=== PATIENT | male | born 1935 | race Caucasian/White ===

== ENCOUNTER → 2018-02-07 | Outpatient (CLI) | payer MEDICARE, BC ==
[~2018-02-07] MED LIST: FERROUS SU325 MG/TAB PO; FOLIC ACID 40400 MCG PO; NORVASC 10MG10 MG PO; VITAMIN C BUFF500 MG PO
== END ==
LOC: COL.RAD 06:00
DX: K82.8 Other specified diseases of gallbladder (principal); K80.20 Calculus of gallbladder without cholecystitis without obstruction
CPT/HCPCS: A9537; J2805

== ENCOUNTER 2018-04-18 11:17 | Emergency (ER) | payer MEDICARE, BC ==
[~2018-04-18] VITALS: Ht 177.8 cm; Wt 86.4 kg
[2018-04-18 11:23] VITALS: TEMP 96.9
[2018-04-18] MEDS ORDERED: KEPPRA750 MG PO (12:09)
[2018-04-18 12:10] LABS: COLLECTION METHOD CLEAN CATCH
[2018-04-18] MEDS ORDERED: ZYLOPRIM 300MG300 MG PO (12:10)
[2018-04-18] MEDS ORDERED: RAPAFLO8 MG PO (12:10)
[2018-04-18 12:18] LABS: BASO % 0.3 % (0.0-2.0); EOS % 0.3 % (0-4.0); GRAN # 4.5 (1.4-6.5); GRAN % 74.6 % (42.2-75.2); HEMATOCRIT 42.9 % (42.0-52.0); HEMOGLOBIN 14.5 g/dl (13.5-18.0); LYMPH # 1.1 (1.2-3.4); LYMPH % 18.5 % (20.0-51.0); MEAN CELL VOLUME 92 fl (80.0-100.0); MEAN CORPUSCULAR HEMOGLOBIN 31 pg (27.0-31.0); MEAN CORPUSCULAR HGB CONC 34 g/dl (33.0-37.0); MEAN PLATELET VOLUME 11.5 fl (7.4-10.4); MONO # 0.4 (0.1-0.6); PLATELET COUNT 112 K/mm3 (130-400); RED BLOOD COUNT 4.65 M/mm3 (4.20-5.60); REDCELL DISTRIBUTION WIDTH-CV 14.1 % (11.5-14.5)
[2018-04-18 12:19] LABS: PH 6 (5-8); SQUAMOUS EPITHELIAL None Seen /hpf; URINE APPEARANCE Clear; URINE BACTERIA None Seen /hpf; URINE BILIRUBIN Negative (NEGATIVE); URINE BLOOD Negative (NEGATIVE); URINE COLOR Yellow; URINE GLUCOSE Negative (NEGATIVE); URINE KETONE Negative (NEGATIVE); URINE LEUKOCYTE ESTERASE Negative (NEGATIVE); URINE NITRATE Negative (NEGATIVE); URINE PROTEIN(semi-quant) Negative (NEGATIVE); URINE RBC 0-2 /hpf; URINE UROBILINOGEN Negative (NEGATIVE)
[2018-04-18 12:36] LABS: PROTHROMBIN TIME 11.5 SECONDS (9.7-12.8)
[2018-04-18 12:55] LABS: ALANINE AMINOTRANSFERASE 40 U/L (21-72); ALBUMIN 3.7 gm/dL (3.5-5.0); ALKALINE PHOSPHATASE 96 U/L (50-136); AMYLASE 65 U/L (30-110); ANION GAP 11 mmol/L (7-16); AST,SGOT 30 U/L (15-37); BILIRUBIN,TOTAL 1.1 mg/dL (0.0-1.0); BLOOD UREA NITROGEN 6 mg/dL (9-20); CALCIUM 9.9 mg/dL (8.4-10.2); CARBON DIOXIDE 25 mmol/L (22-30); CHLORIDE 100 mmol/L (98-107); CREATININE, serum 0.92 mg/dL (0.66-1.25); GLUCOSE 102 mg/dL (74-106); LIPASE 73 U/L (23-300); POTASSIUM 3.7 mmol/L (3.4-5.0); SODIUM 137 mmol/L (137-145); TOTAL PROTEIN 7.2 gm/dL (6.4-8.2)
[2018-04-18 12:56] LABS: C-REACTIVE PROTEIN < 0.5 mg/dL (0.0-0.9)
[2018-04-18 13:05] LABS: TROPONIN-I < 0.012 ng/mL (0.000-0.034)
[2018-04-18] MEDS ORDERED: VOLTAREN 75 DR75 MG PO (15:25)
[2018-04-18 15:32] VITALS: BP 130/79; PULSE 85
== END 2018-04-18 15:32 | disposition home or self-care (01) ==
LOC: COL.ER 11:17
PROVIDERS: Emergency Medicine
DX: G89.29 Other chronic pain (principal); R10.31 Right lower quadrant pain; R10.13 Epigastric pain; M54.5 Low back pain; I10 Essential (primary) hypertension; E78.5 Hyperlipidemia, unspecified; Z90.49 Acquired absence of other specified parts of digestive tract
CPT/HCPCS: J1885; J2765; J3010; J7030; Q9967

== ENCOUNTER 2021-11-03 14:15 | Day surgery (SDC) | payer MEDICARE, BC ==
[2021-11-03] VITALS (10 sets, daily range): BP systolic 118–142; BP diastolic 58–84; PULSE 50–76; TEMP 98.1–98.9
[~2021-11-03] VITALS: Ht 175.3 cm; Wt 88.5 kg
[~2021-11-03 14:15] MED LIST changes: +FLOMAX 0.40.4 MG/CAP PO; +K-DUR20 MEQ PO; +KEPPRA 500MG500 MG PO; +LASIX 20MG TABL20 MG PO; +MASON NATURAL2000 IU PO; +NORVASC 5MG5 MG/TAB PO; +RAPAFLO8 MG PO; +VOLTAREN 75 DR75 MG PO; +ZOLOFT 50MG50 MG PO; +ZYLOPRIM 300MG300 MG PO
[2021-11-03] MEDS ORDERED: NORVASC 10MG10 MG PO (14:51)
[2021-11-03] MEDS ORDERED: LASIX 40MG TABL40 MG PO (14:51)
[2021-11-03] MEDS ORDERED: ARICEPT 5MG PO (15:01)
--- NOTE | 2021-11-03 19:00 | NUR ---
PT ADMITTED TO FLOOR. NO COMPLAINTS OF DYSPNEA. COMPLAINS OF DISCOMFORT TO PENILE AREA. WHEN QUESTIONED ABOUT MEDICATIONS PT STATES HE DOESN'T KNOW THEM BUT GAVE A LIST TO SOMEONE IN SURGERY. SURGERY NURSE REPORTS MED REC COMPLETE. SON UNABLE TO VERIFY MEDICATIONS. NO OTHER CONCERNS OR QUESTIONS AT THIS TIME.
--- NOTE | 2021-11-03 20:04 | NUR ---
PT IN BED, REPORTS PAIN TO TIP OF HIS PENIS. HS MEDS GIVEN INCLUDING MELATONIN AND TYLENOL. HAS PENA WITH CBI AT SLOW RATE, URINE PINK. IVF TO LEFT HAND, NO REDNESS OR SWELLING NOTED.
[2021-11-04 00:30] VITALS: BP 119/60; PULSE 63; TEMP 98
--- NOTE | 2021-11-04 03:25 | NUR ---
PT REPORTS PAIN TO PENIS TIP, TYLENOL 650MG PO GIVEN. URINE LIGHT PINK WITH CBI AT SLOW RATE. EDUCATED PT ON PENA REMOVAL AT 0600.
[2021-11-04 03:46] VITALS: BP 110/61; PULSE 57; TEMP 98.4
--- NOTE | 2021-11-04 05:56 | NUR ---
URINE PINK, INSTILLED 250CC OF SALINE, DEFLATED BALLOON AND REMOVED CATHETER WITHOUT PROBLEM. PT TOLERATED WELL.
[2021-11-04 07:25] VITALS: BP 103/53; PULSE 62; TEMP 97.7
--- NOTE | 2021-11-04 10:19 | NUR ---
Patient resting in bed. His son at bedside. rounded & plan of care reviewed. AZO to be given to treat urinary symptoms. He has completed 3 of 6 cups. He tolerated breakfast. Hopeful for discharge home this afternoon.
--- NOTE | 2021-11-04 11:07 | NUR ---
patient voided a small amount, he is getting dressed, reports he is leaving regaurdless. discussed with him the importance of completing 6 bottle routine.
--- NOTE | 2021-11-04 12:20 | NUR ---
6 BOTTLE ROUTINE COMPLETED. URINE CLEARING NICELY. PATIENT READY FOR DISCHARGE. HIS SON AT BEDSIDE. PATIENT & SON GIVEN DISCHARGE EDUCATION. WE REVIEWED SIGNS & SYMPTOMS OF WHEN TO CALL THE DOCTOR. PATIENT GIVEN DIETARY & ACTIVITY RESTRICTIONS. PATIENT AMBULATED OUT WITH ALL BELONGINGS. HIS SON TAKING HIM HOME. THEY ARE AWARE THEY NEED TO MAKE FOLLOW UP APPT ON SATURDAY. DENY QUESTIONS OR CONCERNS. PATIENT JUST WANTING TO GET HOME.
== END 2021-11-04 12:20 | disposition home or self-care (01) ==
LOC: SDCO 14:15 → SURG 19:13 → SDCO 11-04 12:20
DX: C67.5 Malignant neoplasm of bladder neck (principal); M10.9 Gout, unspecified; I10 Essential (primary) hypertension; Z85.46 Personal history of malignant neoplasm of prostate; F32.A Depression, unspecified; F41.9 Anxiety disorder, unspecified; E87.6 Hypokalemia; Z92.3 Personal history of irradiation; G47.33 Obstructive sleep apnea (adult) (pediatric)
CPT/HCPCS: OP; J0690; J1170; J2405; J2704; J3010; J3480; J7120

== ENCOUNTER 2021-12-13 10:02 | Inpatient (IN) | payer MEDICARE, BC ==
[~2021-12-13] VITALS: Ht 170.2 cm; Wt 92.2 kg
[~2021-12-13 10:02] MED LIST changes: +ARICEPT 5MG PO; +LASIX 40MG TABL40 MG PO
[2021-12-13 10:52] LABS: HEMATOCRIT 40.4 % (42.0-52.0); HEMOGLOBIN 13.2 g/dl (13.5-18.0); MEAN CELL VOLUME 94 fl (80.0-100.0); MEAN CORPUSCULAR HEMOGLOBIN 31 pg (27-31); MEAN CORPUSCULAR HGB CONC 33 g/dl (33.0-37.0); MEAN PLATELET VOLUME 11.2 fl (7.4-10.4); PLATELET COUNT 115 K/mm3 (130-400); RED BLOOD COUNT 4.31 M/mm3 (4.20-5.60); REDCELL DISTRIBUTION WIDTH-CV 15.3 % (11.5-14.5)
[2021-12-13 11:03] LABS: CALCIUM 10.5 mg/dL (8.4-10.2); CREATININE, serum 1.41 mg/dL (0.72-1.25)
[2021-12-27 10:16] LABS: HEMATOCRIT 40.4 % (42.0-52.0); HEMOGLOBIN 13.4 g/dl (13.5-18.0); MEAN CELL VOLUME 92 fl (80.0-100.0); MEAN CORPUSCULAR HEMOGLOBIN 31 pg (27-31); MEAN CORPUSCULAR HGB CONC 33 g/dl (33.0-37.0); MEAN PLATELET VOLUME 10.1 fl (7.4-10.4); PLATELET COUNT 124 K/mm3 (130-400); RED BLOOD COUNT 4.38 M/mm3 (4.20-5.60)
[2021-12-27 10:29] LABS: CALCIUM 10.2 mg/dL (8.4-10.2); CREATININE, serum 1.58 mg/dL (0.72-1.25); POTASSIUM 3.9 mmol/L (3.5-4.5)
[2021-12-28] VITALS (380 sets, daily range): BP systolic 88–115; BP diastolic 37–66; PULSE 55–75; TEMP 97.4–97.8; O2SAT 40–100
--- NOTE | 2021-12-28 05:46 | NUR ---
PT AMBULATED WITHOUT DIFFICULTIES TO BAY 8. VS OBTAINED. VSS. LUNGS CTA. BS PRESENT. IV STARTED IN R HAND WITH 20G. LR INFUSING. PT ORIENTED TO ROOM AND CALL LIGHT. PT VERBALIZED UNDERSTANDING. SON AT BEDSIDE. ALL QUESTIONS ANSWERED. WILL CONTINUE TO MONITOR PT.
[2021-12-28 09:19] LABS: HEMOGLOBIN 9.8 g/dl (13.5-18.0)
[2021-12-28 12:12] LABS: BASO % 0.3 % (0.0-2.0); EOS % 0.1 % (0.0-4.0); GRAN # 13.2 K/mm3 (1.4-6.5); GRAN % 86.6 % (42.2-75.2); HEMOGLOBIN 11.5 g/dl (13.5-18.0); LYMPH # 1.4 K/mm3 (1.2-3.4); LYMPH % 8.9 % (20.0-51.0); MEAN CELL VOLUME 94 fl (80.0-100.0); MEAN CORPUSCULAR HEMOGLOBIN 30 pg (27-31); MEAN CORPUSCULAR HGB CONC 32 g/dl (33.0-37.0); MEAN PLATELET VOLUME 11.1 fl (7.4-10.4); MONO # 0.5 K/mm3 (0.1-0.6); PLATELET COUNT 95 K/mm3 (130-400); RED BLOOD COUNT 3.84 M/mm3 (4.20-5.60); REDCELL DISTRIBUTION WIDTH-CV 16.5 % (11.5-14.5)
[2021-12-28 12:17] LABS: CALCIUM 8.3 mg/dL (8.4-10.2); CREATININE, serum 1.34 mg/dL (0.72-1.25); MAGNESIUM 1.8 mg/dL (1.6-2.6); PHOSPHOROUS 4.2 mg/dL (2.3-4.7); POTASSIUM 4.4 mmol/L (3.5-4.5)
--- NOTE | 2021-12-28 13:10 | NUR ---
Patient awake and alert but oriented to self only. States multiple times "where am I?" and "I'm confused", however, patient is cooperative with staff members. Nurse attempted to re-orient. Will continue to monitor.
--- NOTE | 2021-12-28 14:22 | NUR ---
Discussed plan of care with Dr. Morton. Clarified that he wants fluids with potassium despite latest BMP showing potassium level of 4.4. Will continue these fluids per Dr. Morton. Will keep drain to LIS and aim to maintain MAPs at least 65. Discussed patient's mental status; alert but confused. Family at bedside at this time.
--- NOTE | 2021-12-28 17:30 | NUR ---
Dr. Morton at bedside to see patient. Observed imani bloody output from drain and thomas and urostomy. Dr. Morton stated that everything looked "good" and had no concerns about drainage. Blood was noted to have saturated a section of the abdominal dressing near the incision site. This was showed to Dr. Morton and instructed to just re-enforce dressing. Will continue to monitor.
--- NOTE | 2021-12-28 19:00 | NUR ---
Received report from JENNIFER Zhu.
--- NOTE | 2021-12-28 19:28 | NUR ---
Bedside report given to JENNIFER Babin. Patient care transfered.
--- NOTE | 2021-12-28 19:30 | NUR ---
Patient resting quietly in bed. Patient's son, Nba, at bedside. Patient arouses easily to speech; he is oriented times four and follows verbal commands. He reports pain in lower abdomen as 9/10. Epidural in place and infusing; patient instructed on use of APPRENTICE TECHNICIAN pump. Ileal conduit in place to the RLQ of abdomen to dependent drainage. Drainage is blood-tinged and cloudy. Jung catheter in place with scant dark red drainage. A drain in place to the LLQ set to low-intermittent suction with imani bloody drainage. Per JENNIFER Zhu, Dr. Morton is aware of all drainage colors and amounts.
[2021-12-29] VITALS (768 sets, daily range): BP systolic 104–147; BP diastolic 41–67; PULSE 57–96; TEMP 97.6–98.6; O2SAT 71–100
[2021-12-29 05:55] LABS: MEAN CELL VOLUME 92 fl (80.0-100.0); MEAN CORPUSCULAR HGB CONC 32 g/dl (33.0-37.0); MEAN PLATELET VOLUME 11.2 fl (7.4-10.4); PLATELET COUNT 75 K/mm3 (130-400); RED BLOOD COUNT 2.94 M/mm3 (4.20-5.60); REDCELL DISTRIBUTION WIDTH-CV 16.6 % (11.5-14.5)
[2021-12-29 06:12] LABS: HEMATOCRIT 27.1 % (42.0-52.0); HEMOGLOBIN 8.7 g/dl (13.5-18.0); MEAN CORPUSCULAR HEMOGLOBIN 30 pg (27-31)
[2021-12-29 06:41] LABS: CREATININE, serum 1.21 mg/dL (0.72-1.25); MAGNESIUM 1.8 mg/dL (1.6-2.6); PHOSPHOROUS 1.7 mg/dL (2.3-4.7); POTASSIUM 4.8 mmol/L (3.5-4.5)
[2021-12-29 07:01] LABS: BASO % 0.1 % (0.0-2.0); GRAN # 12.5 K/mm3 (1.4-6.5); GRAN % 86.6 % (42.2-75.2); LYMPH # 0.7 K/mm3 (1.2-3.4); LYMPH % 4.9 % (20.0-51.0); MONO # 1.1 K/mm3 (0.1-0.6); MONO % 7.8 % (1.7-9.3)
--- NOTE | 2021-12-29 07:45 | NUR ---
PT shift assessment completed this am. PT is pleasantly confused. PT does well with re-orientation. Vitals obtained. Lines, drains, medications, lab and orders reviewed. PT denies pain. PT verbalizes understanding of call light and will call for assistance if needed.
--- NOTE | 2021-12-29 08:49 | NUR ---
Dr. Morton in to see patiet. Potassium discussed. IVF orders changed. HGB discussed and to be rechecked at noon. PT to stay in ICU for one more night for post-op monitoring.
--- NOTE | 2021-12-29 09:19 | NUR ---
Initial visit attempt; Patient sleeping, Solar Field Service Technician left a prayer card letting patient know of the availability of spiritual care at our hospital.
[2021-12-29 12:29] LABS: HEMATOCRIT 28.2 % (42.0-52.0); HEMOGLOBIN 9.1 g/dl (13.5-18.0)
--- NOTE | 2021-12-29 14:57 | NUR ---
early childhood worker met with patient and son, Nba and also with spouse (via face time) to complete initial intake. Patient lives with spouse in [place], [place] and has been independent with all of his activities of daily living. Patient plans to return home and home health is desired for continued education and assessment of urinary catheter placed. Patient's primary care provider is Satinder Bowman with [facility]. Per patient and Nba, worker gave [facility] health a referral and faxed clinical information. Worker spoke with Satinder Bowman's nurseMarcia Lopez regarding the above information and confimed that they would support home health for group home and physical therapy. Worker provided written and verbal information on advance directives and spouse is looking for their copies at home. Worker collaborated with patient's nurse to obtain orders for physical therapy in the hospital. Discharge home with spouse and [facility] for group home and physical therapy.
--- NOTE | 2021-12-29 19:00 | NUR ---
Received report from JENNIFER Hou.
--- NOTE | 2021-12-29 19:30 | NUR ---
Patient resting quietly in bed. Patient is alert and answers 3/4 orientation questions appropriately, however, some confusing is evident when speaking to patient. He reports mild pain in abdominal area. Education reinforced regarding use of MEDICAL LIAISON pump. All vitals within normal limits.
[2021-12-30] VITALS (549 sets, daily range): BP systolic 105–130; BP diastolic 64–84; PULSE 84–113; TEMP 98.3–98.9; O2SAT 75–100
--- NOTE | 2021-12-30 04:00 | NUR ---
Patient exhibiting increasing confusion and restlessness throughout shift. Dr. Morton notified at approximately 0215 of patient's behaviors, including picking at incision dressing and ostomy site, potentially dislodging ileal conduits. Patient reports unreleived pain despite epidural and SPECIAL INSPECTOR use. No new orders were received at that time. Mitts applied to protect dressings and lines. With mitt application, patient became agitated. Anesthesia provider, Joce Mohr notified at 0315. Epidural insertion site dressing had previously been noted to be peeling, and was reinforced by this RN. With that in mind, anesthesia suspects epidural may have become dislodged. Suggests epidural be stopped and patient switched to IV pain control to be determined by Dr. Morton. This RN proceeded to contact Dr. Morton a second time, relaying conversation with anesthesia. Dr. Morton agrees with anesthesia; to stop epidural infusion and switch to either IV Dilaudid or Morphine, with no preference to either. This RN then contacted anesthesia provider, Joce Mohr, once more to discuss pain relief options. Eventually, it was decided to initiate IV Dilaudid, 0.25mg q 2 hours to start. Will administer and reassess pain management as needed.
[2021-12-30 05:11] LABS: BASO % 0.2 % (0.0-2.0); EOS % 0.1 % (0.0-4.0); GRAN % 82.1 % (42.2-75.2); LYMPH % 8.4 % (20.0-51.0); MEAN CELL VOLUME 91 fl (80.0-100.0); MEAN CORPUSCULAR HGB CONC 32 g/dl (33.0-37.0); MEAN PLATELET VOLUME 12.2 fl (7.4-10.4); MONO # 1.1 K/mm3 (0.1-0.6); MONO % 8.8 % (1.7-9.3); PLATELET COUNT 83 K/mm3 (130-400); RED BLOOD COUNT 2.94 M/mm3 (4.20-5.60); REDCELL DISTRIBUTION WIDTH-CV 16.8 % (11.5-14.5)
[2021-12-30 05:14] LABS: HEMATOCRIT 26.6 % (42.0-52.0); HEMOGLOBIN 8.6 g/dl (13.5-18.0); MEAN CORPUSCULAR HEMOGLOBIN 29 pg (27-31)
[2021-12-30 05:19] LABS: CALCIUM 8.8 mg/dL (8.4-10.2); CREATININE, serum 1.13 mg/dL (0.72-1.25)
--- NOTE | 2021-12-30 07:27 | NUR ---
Epidural discontinued by anesthesia. Orders received to remove epidural catheter. Catheter removed by this RN; tip intact. No bleeding noted following removal, bandaid applied to insertion site.
--- NOTE | 2021-12-30 07:30 | NUR ---
REPORT RECEIVED FROM JENNIFER BRYANT. FC TO DEPENDENT DRAINAGE WITH SANGINOUS DRAINAGE PRESENT. ABDOMINAL DRAIN TO LIS WITH SANGINOUS DRAINAGE PRESENT. ILEAL CONDUIT TO DEPENDENT DRAINAGE WITH DARK YELLIOW URINE PRESENT. RIGHT RADIAL ARTERIAL LINE IN PLACE; CLEAN, DRY, AND INTACT. 20G IV IN RIGHT HAND AND 20G IV TO RIGHT EJ. ABDOMINAL INCISION COVERED WITH ABD; CLEAN AND DRY WITH NO DRAINAGE PRESENT ON DRESSING. VITAL SIGNS STABLE.
--- NOTE | 2021-12-30 10:56 | NUR ---
ICU CHARGE NURSE CALLED REGAURDING PATIENT DRAIN, THIS NURSE DID CALL TO CLARIFY ORDERS. HE REQUESTED MARTY DRAIN BE CUT & BAGGED. LLQ MARTY DRAIN CUT & PLACED TO DD IN A OSTOMY BAG. WHILE AT BEDSIDE ASSISTED PATIENT PRIMARY NURSE WITH STOMA CARES. STENTS FLUSHED WITH 3MLS NS EACH. NEW OSTOMY APPLIANCE PLACED, PRIOR BAG NOTED TO BE LEAKING. CUT OSTOMY APPLIACE TO FIT. STOMA PINK. MIDLINE CHATA INTACT. NEW GAUZE DRESING PLACED, DRAINGE NOTED. PATIENT AT BEDSIDE & QUESTIONS ANSWERED REGUARDING STOMA CARES.
--- NOTE | 2021-12-30 11:23 | NUR ---
PT AGITATED AND RESTLESS DESPITE REPOSITING AND REASSURANCE FROM ; PT STATES HE "HURTS ALL OVER." PRN DILAUDID GIVEN FOR PAIN.
--- NOTE | 2021-12-30 12:35 | NUR ---
RIGHT RADIAL ARTERIAL LINE REMOVED BY THIS NURSE. ARTERIAL LINE CATHETER REMOVED INTACT. PRESSURE HELD TO SITE UNTIL HEMOSTASIS WAS ACHEIVED. DRESSING PLACED OVER SITE. PT TOLERATED WITHOUT COMPLAINT.
--- NOTE | 2021-12-30 14:13 | NUR ---
PT RESTING QUIETLY AT THIS TIME. AT THE BEDSIDE. VITAL SIGNS STABLE.
[2021-12-30 15:25] LABS: RETIC # 0.06 M/mm3 (0.02-0.16); RETIC % 2.2 % (0.5-3.52)
--- NOTE | 2021-12-30 16:12 | NUR ---
THIS NURSE ENTERED PT'S ROOM TO ASSESS NEEDS. IT WAS FOUND THAT PT HAD REMOVED UROSTOMY POUCH, DRAIN POUCH, AND INCISION DRESSING. POUCHES AND DRESSING WERE REPLACED. PT WAS WIPED DOWN WITH BATH WIPES AND LINENS AND GOWN WERE CHANGED WELL. PT DID BECOME AGITATED DURING DRESSING AND LINEN CHANGE, BUT WAS ABLE TO CALM DOWN ONCE FINISHED. PT NOW LIES SUPINE WITH HOB ELEVATED AND BED ALARM ON.
--- NOTE | 2021-12-30 18:23 | NUR ---
UPON ASSESSING PT IT WAS FOUND THAT THE MARTY DRAIN POUCH AND ILEAL CONDUIT POUCH HAD BOTH BEEN REMOVED BY PT. DRESSING WAS REPLACED OVER MIDLINE INCISION AND BOTH DRAIN POUCHES WERE REPLACED. PT CONTINUES TO BE AGITATED AND RESTLESS.
--- NOTE | 2021-12-30 18:32 | NUR ---
PT'S SON TERRANCE AT THIS BEDSIDE. PT'S SON ASKS THIS NURSE IF PT HAS BEEN TAKING HIS SEIZURE MEDICATION. THIS NURSE LET TERRANCE KNOW THAT STAFF WAS UNAWARE THAT PT HAS A HISTORY OF SEIZURES AND THAT HE TAKES MEDICATION. TERRANCE ALSO MADE THIS NURSE AWARE THAT PT HAS A HISTORY OF STROKE AND THAT WHEN THE STROKE OCCURED; THE PT'S CURRENT CONDITION/BEHAVIOR WAS SIMILAR TO HOW IT IS NOW. THIS NURSE MADE HOSPITALIST AWARE OF THESE NOTIFICATIONS FROM SON.
[2021-12-31] VITALS (333 sets, daily range): BP systolic 116–154; BP diastolic 65–93; PULSE 89–110; TEMP 97.7–100.2; O2SAT 60–100
--- NOTE | 2021-12-31 06:03 | NUR ---
PT ABLE TO REST FOR 1-2 HOUR PERIODS THROUGHOUT THE NIGHT. WHEN AWAKE, PT RESTLESS/AGITATED, ATTEMPTING TO GET OUT OF BED, AND PULLING AT DRESSINGS/UROSTOMY. MITS PLACED FOR PROTECTION OF INCISION/DRAIN/UROSTOMY DUE TO INABILITY TO FOLLOW COMMANDS. . THIS RN DID HAVE TO REPLACE UROSTOMY AND POUCH OVER AMPARO DRAIN X3 THIS SHIFT RELATED TO LEAKING AND ATTEMPT TO KEEP INCISION CLEAN POSSIBLE. . UNABLE TO GET A GOOD SEAL OVER AMPARO DRAIN, FREQUENTLY LEAKING. UNABLE TO GET ACCURATE OUTPUT FROM DRAIN RELATED TO THE LEAKING. DUE TO ALMOST CONSTANT MOISTURE, INCISION LEFT OPEN TO AIR. CLEASED WITH NS AND GAUZE WITH OSTOMY DRESSING CHANGES. PT CONFUSED, DOES NOT ANSWER ANY QUESTIONS APPROPRIATELY. WHEN RESTING, HR 90'S. WHILE AWAKE AND AGITATED, HR 130'S. PT DOES SHOW S/S OF PAIN WITH DRESSING CHANGES. PRN DILAUDID GIVEN FOR PAIN DOCUMENTED IN MAR. PRN ATIVAN GIVEN FOR RESTLESSNESS/AGITATION DOCUMENTED IN MAR. PT REFUSED TO SWALLOW PILLS THIS SHIFT. R EJ REMOVED DRESSING CONTINUOUSLY COMING OFF AFTER BEING CHANGED AND REINFORCED. PT CURRENTLY SLEEPING. CALL LIGHT WITHIN REACH, BED ALARM ON.
[2021-12-31 06:33] LABS: BASO % 0.4 % (0.0-2.0); EOS # 0.1 K/mm3 (0.0-0.7); EOS % 1.3 % (0.0-4.0); GRAN # 3.6 K/mm3 (1.4-6.5); GRAN % 68.1 % (42.2-75.2); LYMPH # 0.8 K/mm3 (1.2-3.4); LYMPH % 14.4 % (20.0-51.0); MEAN CELL VOLUME 90 fl (80.0-100.0); MEAN CORPUSCULAR HGB CONC 33 g/dl (33.0-37.0); MEAN PLATELET VOLUME 11.5 fl (7.4-10.4); MONO # 0.8 K/mm3 (0.1-0.6); MONO % 15.4 % (1.7-9.3); PLATELET COUNT 67 K/mm3 (130-400); RED BLOOD COUNT 2.87 M/mm3 (4.20-5.60); REDCELL DISTRIBUTION WIDTH-CV 16.1 % (11.5-14.5)
[2021-12-31 06:39] LABS: HEMATOCRIT 25.7 % (42.0-52.0); HEMOGLOBIN 8.5 g/dl (13.5-18.0); MEAN CORPUSCULAR HEMOGLOBIN 30 pg (27-31)
[2021-12-31 06:52] LABS: ALBUMIN 2.7 gm/dL (3.4-4.8); BILIRUBIN,TOTAL 1.2 mg/dL (0.2-1.2); CALCIUM 8.7 mg/dL (8.4-10.2); CREATININE, serum 1.08 mg/dL (0.72-1.25); PHOSPHOROUS 2.1 mg/dL (2.3-4.7); POTASSIUM 3.4 mmol/L (3.5-4.5); TOTAL PROTEIN 5.3 gm/dL (6.2-8.1)
--- NOTE | 2021-12-31 07:00 | NUR ---
PT IS RESTING IN BED. VSS. BEDALARM ACTIVE. WILL CONTINUE TO MONITOR.
--- NOTE | 2021-12-31 11:00 | NUR ---
PATIENT ADMITED INTO ROOM 326 FROM ICU. PATIENT IS CONFUSED AND DROWSY. ICU REPORTS PATIENT HAS BEEN STRUGGLING WITH POST OP DELIRIUM AND HAS REQUIRED ATIVAN. PATIENT ALSO HAS PRN DILAUDID AND HALDOL IF NEEDED. PATIENT IS CURRENTLY UNABLE TO SAFELY TAKE ORAL MEDICATIONS. PATIENT RESPONDS TO STIMULI BUT OFTEN BECOMES AGGITATED. BUE MITTS INPLACE. BED ALARM ON. RIGHT UPPER ARM IV INFUSING VIA PUMP. ABD IS DISTENDED WITH POSTIVE BOWL SOUNDS. ABD MIDLINE INCISION IS WELL APPROXIMATED WITH STAPLE CLOSURE. RIGHT ABD WITH ILEO CONDUIT TO DD, NOTED MOD AMOUNTS OF RED-TINGED URINE. PENA TO DD WITH SMALL AMOUNTS OF RED-TINGED URINE. MARTY DRAIN CUT & BAG WITH SMALL AMOUNTS OF RED-TINGED DRAINAGE. HEAD TO TOE ASSESSMENT COMPLETE. PT/OT/ST CONSULTED. SON AT BEDSIDE. CALL LIGHT IN REACH. BED ALARM ON. PATIENT VISUALIZED FROM NURSING STATION.
--- NOTE | 2021-12-31 11:04 | NUR ---
1045-REPORT CALLED TO SCOTT RODRIGUEZ. ALL QUESTIONS ANSWERED. 1055- PT TRANSFERED TO SURGICAL BED AND TAKEN TO ROOM 326, SON TERRANCE AWARE. SCOTT RODRIGUEZ MET BEDSIDE.
--- NOTE | 2021-12-31 11:50 | NUR ---
PATIENT GOING DOWN TO CT VIA WC
--- NOTE | 2021-12-31 12:02 | NUR ---
PATIENT BACK IN ROOM FROM CT
--- NOTE | 2021-12-31 13:50 | NUR ---
PATIENT SLEEPING WITH MOUTH OPEN. NOTED THICK ORAL SECRETIONS. USED PRN SUCTION. PATIENT TOLERATED WELL. I&O'S COMPLETE. SON AT BEDSIDE.
--- NOTE | 2021-12-31 14:30 | NUR ---
DR.DEVINE GARBER. CAUGHT SON IN EL[place], PATIENT STATUS UPDATE GIVEN.
--- NOTE | 2021-12-31 14:59 | NUR ---
PATIENT BECOMING RESTLESS AND AGGITATED AGAIN. PATIENT APPEARS TO HAVE SOME DISCOMFORT, GAVE PRN IV DILAUDID. WILL MONITOR.
--- NOTE | 2021-12-31 16:50 | NUR ---
PATIENT BECOMING AGGITATED AGAIN AFTER NURSING CHANGED HIS GOWN, REPOSITIONED HIM & DID I&O'S. GAVE PRN ATIVAN IV.
--- NOTE | 2021-12-31 17:50 | NUR ---
PATIENT INCREASINGLY CONGESTED AND TRYING TO COUGH UP THICK ORAL SECRETIONS BUT IS UNABLE TO GET MUCH OF IT UP. NOTED "RATTLE" WITH BREATHING. CALLED HOSPITALIST, SEE NEW ORDERS.
--- NOTE | 2021-12-31 22:12 | NUR ---
PT SUCTIONED MOST OF COARSENESS IN CHEST SEEMS TO BE HIGHER THAN THE LUNGS. SMALL AMOUNT OF THICK MUCOUS/SPUTUM SUCTIONED. PT REPOSITIONED APPROX. Q2 HRS.
--- NOTE | 2022-01-01 00:10 | NUR ---
ILEAL CONDUIT STENTS FLUSHED, 3 cc EACH.
[2022-01-01 00:25] VITALS: BP 116/58; PULSE 94; TEMP 98.2
[2022-01-01 03:46] VITALS: BP 147/75; PULSE 113; TEMP 99.1
--- NOTE | 2022-01-01 04:24 | NUR ---
ABD PLACE AT MIDLINE INCISION. SOME SEROUS DRAINAGE COMING LEAKING PAST INCISION. DRAINAGE HAS A BIT OF A FOUL ODOR.
[2022-01-01 06:28] LABS: BASO % 0.2 % (0.0-2.0); EOS # 0.1 K/mm3 (0.0-0.7); EOS % 2.1 % (0.0-4.0); GRAN # 4.1 K/mm3 (1.4-6.5); GRAN % 71.5 % (42.2-75.2); LYMPH # 0.7 K/mm3 (1.2-3.4); LYMPH % 11.6 % (20.0-51.0); MEAN CELL VOLUME 90 fl (80.0-100.0); MEAN CORPUSCULAR HGB CONC 33 g/dl (33.0-37.0); MEAN PLATELET VOLUME 11.5 fl (7.4-10.4); MONO # 0.8 K/mm3 (0.1-0.6); MONO % 13.7 % (1.7-9.3); PLATELET COUNT 87 K/mm3 (130-400); RED BLOOD COUNT 2.92 M/mm3 (4.20-5.60); REDCELL DISTRIBUTION WIDTH-CV 15.9 % (11.5-14.5)
[2022-01-01 06:40] LABS: HEMOGLOBIN 8.7 g/dl (13.5-18.0); MEAN CORPUSCULAR HEMOGLOBIN 30 pg (27-31)
[2022-01-01 06:41] LABS: HEMATOCRIT 26.2 % (42.0-52.0)
[2022-01-01 07:08] LABS: CALCIUM 8.7 mg/dL (8.4-10.2); CREATININE, serum 1.03 mg/dL (0.72-1.25); MAGNESIUM 1.7 mg/dL (1.6-2.6); PHOSPHOROUS 1.9 mg/dL (2.3-4.7); POTASSIUM 3.5 mmol/L (3.5-4.5)
[2022-01-01 08:00] VITALS: BP 141/67; PULSE 113; TEMP 98.2
--- NOTE | 2022-01-01 08:34 | NUR ---
called, he states he will be in to see patient soon. I will review my concerns with when he rounds
--- NOTE | 2022-01-01 08:51 | NUR ---
Patient resting in bed. He was 3 assist this am to get cleaned up & repositioned. Noted to have leaking from midline incision. Marci intact, gauze replaced. New ostomy appliace around jose drain. New ostomy appliace applied to illeoconduit. cut to fit. abdomen is bruised. Upon changing appliance, odor noted from stoma, jose drain, & midline. His abdomen is soft, not distended.
--- NOTE | 2022-01-01 09:02 | NUR ---
rounded. We reviewed concerns. Matteo Lamar per orders. We discussed plan of care. Patient resting.
--- NOTE | 2022-01-01 09:31 | NUR ---
son called & update given
[2022-01-01 12:00] VITALS: BP 131/70; PULSE 106; TEMP 97.5
--- NOTE | 2022-01-01 12:19 | NUR ---
First visit from the laboratory development technician. No needs right now.
[2022-01-01 15:34] VITALS: BP 136/71; PULSE 106; TEMP 98.6
--- NOTE | 2022-01-01 16:59 | NUR ---
rounded. Discussed cares. aware of odor, he believes it is due to concentrated urine. Stents removed from Stoma. Stoma remains pink. Adequate urine output with, urine yellow with sediment present. Jennifer drain to DD. Narcotics have been avoided today to see if patient becomes more aware & alert. Patient has been a little more awake & more vocal. His son has been at bedside today. Mitts off when son at bedside. Patient was given sips of water & oral cares provided, mouth has been very dry. Ivf continues to RUE. Midline with sirisha gauze intact. Will monitor, high fall risk followed.
--- NOTE | 2022-01-01 17:15 | NUR ---
Update called to . I did discuss with him the possibility for needing something for DVT prophylaxis, he will speak to hospitlist in the AM.
--- NOTE | 2022-01-01 18:07 | NUR ---
Patient repositioned in bed. More awake, watching [employer] news. Son at bedside.
[2022-01-01 20:03] VITALS: BP 130/73; PULSE 118; TEMP 99
--- NOTE | 2022-01-01 20:46 | NUR ---
Patient yelling out grabbing abdomen. Dilaudid given per dr batres.
--- NOTE | 2022-01-01 21:22 | NUR ---
Patient continue to climb over bed rails trying to get out of bed. States he wants to go to his truck and go home. IV site to right upper arm noted to be infiltrated. Restarted in right hand-22g-x2 attempts. Ativan given for agitation. Will monitor.
--- NOTE | 2022-01-01 23:39 | NUR ---
Patient continues to be very restless-climbing over arm rails-trying to bite mitts and staff. Very anxious stating he is going home. Spoke with LEYDA RobbinsWP-[id number] orders received and initiated.
[2022-01-02 00:23] VITALS: BP 152/79; PULSE 111; TEMP 99.1
--- NOTE | 2022-01-02 02:56 | NUR ---
Pt continues to be awake in room trying ot climb out of bed to go home. Mitts are on due to pulling out IV and trying to remove ostomy bags. Has received several dose of ativan with no results. Denies having pain. Unable to take PO pills due to NPO status and worry of aspirating. ST consult not completed yet. MAKE UP OPERATOR HELPER is at bedside sitting with patient.
[2022-01-02 04:19] VITALS: BP 148/68; PULSE 110; TEMP 97.8
--- NOTE | 2022-01-02 04:56 | NUR ---
Has been awake entire shift trying to climb out of bed and go home. Jennifer drain with minimal output. Adequate ouput to orostomy. Dressing to midline incision changed x3 due to drainage. No s/s of distress n oted. WIll monitor.
[2022-01-02 06:37] LABS: BASO % 0.3 % (0.0-2.0); EOS # 0.2 K/mm3 (0.0-0.7); EOS % 1.8 % (0.0-4.0); GRAN # 6.7 K/mm3 (1.4-6.5); GRAN % 76.1 % (42.2-75.2); LYMPH # 0.7 K/mm3 (1.2-3.4); LYMPH % 7.8 % (20.0-51.0); MEAN CELL VOLUME 89 fl (80.0-100.0); MEAN CORPUSCULAR HGB CONC 33 g/dl (33.0-37.0); MEAN PLATELET VOLUME 11.5 fl (7.4-10.4); MONO # 1.2 K/mm3 (0.1-0.6); PLATELET COUNT 110 K/mm3 (130-400); RED BLOOD COUNT 3.27 M/mm3 (4.20-5.60); REDCELL DISTRIBUTION WIDTH-CV 15.8 % (11.5-14.5)
[2022-01-02 06:39] LABS: HEMATOCRIT 29.2 % (42.0-52.0); HEMOGLOBIN 9.7 g/dl (13.5-18.0); MEAN CORPUSCULAR HEMOGLOBIN 30 pg (27-31)
[2022-01-02 06:40] LABS: CALCIUM 8.9 mg/dL (8.4-10.2); CREATININE, serum 1.22 mg/dL (0.72-1.25); MAGNESIUM 1.7 mg/dL (1.6-2.6); POTASSIUM 3.7 mmol/L (3.5-4.5)
--- NOTE | 2022-01-02 07:00 | NUR ---
Report received from JENNIFER Mckenna. Pt in bed resting, turned to Left side for comfort, per slot shift supervisor pt has been awake most of night, will continue to monitor.
[2022-01-02 07:35] VITALS: BP 113/57; PULSE 101; TEMP 99.8
--- NOTE | 2022-01-02 08:33 | NUR ---
Assessment charted. Pt in bed resting, awakens but unable to understand verbalization. Turning q2hr to offset sacrem. Ileal Conduit draining melissa sediment filled to bag via dependent drainage at side of bed. Midline sirisha are well approximated and draining a dark serosanguinous drainage. Jennifer drain is draning serosanguinous drainage into wee bag with stents present. Pt is coughing often in room and found to have phlegm in back of throat that was suctioned with yanker, oral care provided. Bed alarm on and mitts to protect patient, will continue to monitor.
--- NOTE | 2022-01-02 11:17 | NUR ---
Pt sleepy but arouses when changing wafer and pouch to jose drain site. Drainage from this wafer noted and changed but ileal conduit site is still intact so not changing at this time. ABD midline dressing changed twice already this shift due to distal drainage that is dark brown/red. Will continue to monitor.
[2022-01-02 11:43] VITALS: BP 120/72; PULSE 103; TEMP 98.6
[2022-01-02] MEDS ORDERED: ARICEPT 5MG PO (12:48)
--- NOTE | 2022-01-02 13:01 | NUR ---
The patient has had altered mental status and agitation after surgery. PT is recommending possible SNF. LASHELL attempted to contact the patient's , Roslyn, to address the above and review discharge plan. LASHELL left her a voicemail. The patient's son, Nba, then arrived to the hospital. LASHELL met with Nba and updated him on the above. Nba reports that they are hopeful that the patient can still return home with Roslyn and resume home health. Nba reports that he needs to talk to the patient's and his brother some more about the options and how his father is doing, before making any final decisions. LASHELL provided him with this SW's phone number. At this time, the patient's family plans on him returning home with the and home health. SW to continue to follow.
[2022-01-02 13:41] LABS: COLLECTION METHOD CLEAN CATCH
[2022-01-02 13:53] LABS: MUCOUS Present (NOT PRESENT); PH 7 (5-8); SQUAMOUS EPITHELIAL None Seen /hpf (0-10); URINE APPEARANCE Cloudy (CLEAR/HAZY); URINE BACTERIA Many /hpf (NONE SEEN); URINE BILIRUBIN Negative (NEGATIVE); URINE BLOOD 3+ (NEGATIVE); URINE COLOR Amber (YELLOW); URINE GLUCOSE Negative (NEGATIVE); URINE KETONE Negative (NEGATIVE); URINE LEUKOCYTE ESTERASE 3+ (NEGATIVE); URINE NITRATE Positive (NEGATIVE); URINE PROTEIN(semi-quant) 1+ (NEGATIVE); URINE RBC >50 /hpf (0-2); URINE UROBILINOGEN >=4.0 (NEGATIVE)
[2022-01-02 16:46] VITALS: BP 115/74; PULSE 99; TEMP 100
--- NOTE | 2022-01-02 17:56 | NUR ---
Pth as done well over shift, sleeping often during daytime despite attemtps to keep him awake, his son has been at bedside all day. Pt did request sprite this afternoon and took a coupld of sips well. PAC accessed to [facility] and good blood return, utilizing for infusions of electrolytme meds. Changed ABD to midline dressing 3 times over shift and only changed ostomy appliance to L jose drains once over shift. R urostomy draining yellow clear urine. Turning q2 hours for comfort. Denies needs, will give bedside shift report to nightshift nurse who will resume care.
--- NOTE | 2022-01-02 20:00 | NUR ---
Bedside shift report received, assumed care for production supervisor off shift. Assessment complete. More alert this shift but still confused. Tolerated HS medications crushed in pudding. Port to right chest flushes without difficulty-good blood return. Denies pain/nausea/shortness of breath. VS remain stable. Jennifer drain with reddish output. Ileal conduit draining yellow cloudy/sediment urine. Midline ammjagoh-[id number]-cgnnq well approximated. No drainage noted at this time. Dressing CDI. SCDs bilat. Denies current needs. Call light in reach. Will monitor.
[2022-01-02 20:11] VITALS: BP 128/61; PULSE 110; TEMP 98.6
--- NOTE | 2022-01-02 22:10 | NUR ---
Dressing changed to midline abdomen due to Serosanguineous drainage.
--- NOTE | 2022-01-02 22:50 | NUR ---
Patient continues to set off bed alarm and is very restless. Will not leave CPAP on. States he is getting out of here. Repositioned in bed with pillow support. Will continue to monitor.
--- NOTE | 2022-01-02 23:54 | NUR ---
Resting in bed eyes closed/CPAP on. No s/s of pain or discomfort noted.
--- NOTE | 2022-01-03 01:07 | NUR ---
Patient has not slept at all this shift despite receiving PO meds. Trying to climb over arm rails to go home. Has pulled thomas bag in bed and unclamped it. Will not wear CPAP. Ativan given per dr batres.
[2022-01-03 01:14] VITALS: BP 112/64; PULSE 107; TEMP 98.7
--- NOTE | 2022-01-03 04:49 | NUR ---
Patient finally fell asleep at approx 0400. Adequate output to ileal conduit. Labs drawn from right chest port without difficulty. Dressing to midline changed x2 this shift. Jennifer drain with 25mls reddish fluid. Took PO meds crushed in pudding well. Received one dose of ativan for agitation in the night. No s/s of distress at this time. Call light in reach. Will monitor.
[2022-01-03 04:57] VITALS: BP 105/61; PULSE 94; TEMP 99.4
[2022-01-03 06:25] LABS: BASO % 0.3 % (0.0-2.0); EOS # 0.1 K/mm3 (0.0-0.7); EOS % 2.3 % (0.0-4.0); GRAN # 4.4 K/mm3 (1.4-6.5); GRAN % 71.4 % (42.2-75.2); LYMPH # 0.7 K/mm3 (1.2-3.4); LYMPH % 10.5 % (20.0-51.0); MEAN CELL VOLUME 93 fl (80.0-100.0); MEAN CORPUSCULAR HGB CONC 32 g/dl (33.0-37.0); MEAN PLATELET VOLUME 10.7 fl (7.4-10.4); MONO # 0.9 K/mm3 (0.1-0.6); MONO % 14.2 % (1.7-9.3); PLATELET COUNT 117 K/mm3 (130-400); RED BLOOD COUNT 2.81 M/mm3 (4.20-5.60)
[2022-01-03 06:28] LABS: CALCIUM 8.9 mg/dL (8.4-10.2); CREATININE, serum 1.26 mg/dL (0.72-1.25); PHOSPHOROUS 2.4 mg/dL (2.3-4.7); POTASSIUM 3.9 mmol/L (3.5-4.5)
[2022-01-03 06:34] LABS: HEMATOCRIT 26.1 % (42.0-52.0); HEMOGLOBIN 8.3 g/dl (13.5-18.0); MEAN CORPUSCULAR HEMOGLOBIN 30 pg (27-31)
--- NOTE | 2022-01-03 07:58 | NUR ---
Patient more awake this am. Talking in room, hard to understand at times. Not fully oriented. Patient found to be incontinent of stool. Patient provided with full bed bath, fresh linens. Patient was 3 assist to bedside commode. He had more stool. Pericares given with brief on and barrier cream. Patient 3 assist to sit up in chair. Chair alarm high, high fall risk followed. Patient worn out after activity & not sleeping in chair. Port with Ivf per orders. Int to Right wrist. Jennifer drain to DD, ostomy appliance intact. Midline dressing intact. Illeoconduit ostomy appliance intact, draining adequate output to thomas bag. Patient abdomen soft. When patient wakes breakfast will be offered. Will closely monitor.
[2022-01-03 08:00] VITALS: BP 113/77; PULSE 104; TEMP 98.3
[2022-01-03 12:00] VITALS: BP 103/57; PULSE 84; TEMP 98.6
--- NOTE | 2022-01-03 14:40 | NUR ---
The patient's RN notified LASHELL that after the hospitalist spoke to the family today, the patient's family is agreeable to pursue SNF. LASHELL met with the patient's son, Sam, and reviewed the above. Sam confirms that him and their family are agreeable to SNF and chose 1) [facility] 2) [facility]. LASHELL contacted and faxed a referral to [facility]. LASHELL attempted to contact Evie at [facility]. LASHELL left her a voicemail and faxed over the referral. Awaiting screens. *Discharge plan: SNF or SB*
[2022-01-03 15:59] VITALS: BP 128/60; PULSE 85; TEMP 97.6
--- NOTE | 2022-01-03 18:45 | NUR ---
PATIENT UP TO COMMODE X3 WITH LOOSE STOOL. PATIENT IS ABLE TO COMMUNICATE WHEN HE NEEDS TO USE THE COMMODE. PATIENT NEEDS ASSSITANCE OF 2 AND IS UNSTEADY ON HIS FEET. PATIENT WAS ABLE TO FEED HIMSELF HALF OF HIS BREAKFAST WITH SOME ASSISTANCE. PATIENT WAS ORIENTED TO TIME AND PLACE AND CARRIED A CONVERSATION THROUGHOUT BREAKFAST. PATIENT'S MARTY DRAIN WAS DC'D. PATIENT TOLERATED WELL. OSTOMY APPLIANCES CHANGED X2 THROUGHOUT SHIFT DUE TO DRAINAGE. PATIENT'S SKIN IS APPEARING IRRITATED WITH FREQUENT DRESSING CHANGES. PATIENT IS RESTING IN BED WITH CALL LIGHT NEAR AND SON AT BEDSIDE.
--- NOTE | 2022-01-03 19:40 | NUR ---
Pt. laying in bed. Pt. is alert and confused. Son at bedside. Shift assessment complete. PORT to rt. chest, IV fluids infusing per orders. Dressing to abd. midline incision CDI, ostomy bag to ileal conduit, draining melissa urine at this time. Pt. denies pain or other needs, call light within reach.
--- NOTE | 2022-01-03 19:40 | NUR ---
Pt. laying in bed. Pt. is A&OX3, assessment complete. PORT to rt. chest patent. IV fluids infusing per orders. Pt. assisted up to the bedside commode with 2 assist. Pt. had a small amount of loose stool. Karyn care provided. Pt. repositioned in bed for comfort. Pt. denies pain or other needs, call light within reach.
[2022-01-03 20:10] VITALS: BP 121/66; PULSE 94; TEMP 97.6
--- NOTE | 2022-01-03 23:51 | NUR ---
Dressing to midline incision with notable drainage, dressing changed, 4X4's and hypafix tape used. ostomy to ileal conduit intact and not replaced at this time. Marci intact, no reddness, warmth, or edema noted to incision. Pt. continues to be confused.
[2022-01-04] VITALS (7 sets, daily range): BP systolic 109–140; BP diastolic 56–75; PULSE 85–104; TEMP 97.4–98.5
[2022-01-04 05:48] LABS: MEAN CELL VOLUME 92 fl (80.0-100.0); MEAN CORPUSCULAR HGB CONC 32 g/dl (33.0-37.0); MEAN PLATELET VOLUME 10.9 fl (7.4-10.4); PLATELET COUNT 136 K/mm3 (130-400); RED BLOOD COUNT 2.76 M/mm3 (4.20-5.60); REDCELL DISTRIBUTION WIDTH-CV 16.3 % (11.5-14.5)
[2022-01-04 05:58] LABS: HEMATOCRIT 25.3 % (42.0-52.0); HEMOGLOBIN 8.2 g/dl (13.5-18.0); MEAN CORPUSCULAR HEMOGLOBIN 30 pg (27-31)
[2022-01-04 06:01] LABS: CALCIUM 9.3 mg/dL (8.4-10.2); CREATININE, serum 1.23 mg/dL (0.72-1.25); POTASSIUM 3.4 mmol/L (3.5-4.5)
--- NOTE | 2022-01-04 06:39 | NUR ---
Attempted to notify pt.'s son Sam. Left a voice message.
[2022-01-04 08:15] LABS: BASO % 0.4 % (0.0-2.0); EOS # 0.2 K/mm3 (0.0-0.7); GRAN # 3.3 K/mm3 (1.4-6.5); GRAN % 67.8 % (42.2-75.2); LYMPH # 0.6 K/mm3 (1.2-3.4); LYMPH % 12.8 % (20.0-51.0); MONO # 0.6 K/mm3 (0.1-0.6); MONO % 12.6 % (1.7-9.3)
--- NOTE | 2022-01-04 11:36 | NUR ---
PATIENT RESTING IN CHAIR UPON ARRIVAL. PATIENT VSS. MIDLINE DRESSING CHANGED. PATIENT'S COGNITION HAS IMPROVED FROM YESTERDAY. PATIENT WAS ABLE TO EXPLAIN THE YEAR, MONTH, AND LOCATION. PATIENT FED HIMSELF BREAKFAST. CLEANED AND APPLIED NEW OSTOMY APPLIANCE. PT HAS BEEN IN, AMBULATED PATIENT TO RESTROOM. PATIENT HAD LOOSE BOWEL MOVEMENT. PATIENT'S DIET WAS ADVANCED PER SPEECH. LOOKING AT PLACEMENT IN [facility]. FAMILY IN ROOM WITH PATIENT, CALL LIGHT WITHIN REACH.
--- NOTE | 2022-01-04 13:10 | NUR ---
The PA notified LASHELL that the patient is doing a lot better and may be ready to discharge tomorrow, if he continues to do well. LASHELL notified Hermila at [facility]. Hermila reports that they are able to accept the patient, but that they would not be able to take the patient until next Saturday, 01/09. She reports that they do not have any admitting staff members until Saturday. She states that they would also require a PCR COVID test. LASHELL followed up with Jessica at [facility] ([place], [place]). Jessica reports she needs to send the patient's info to their doctor and have him review it. She states she will get back to this . *Discharge plan: [facility] has accepted, but cannot take until Saturday*
--- NOTE | 2022-01-04 16:13 | NUR ---
Jessica, at [facility], reports that they are able to accept the patient tomorrow. She states that she will touch base with community mental health social worker in the morning for the doc-to-doc and RN report phone numbers. LASHELL met with the patient and his [id number], Jagruti, to update on the facilities and how the patient may be ready to discharge by tomorrow. The patient's son, Nba, was present for the conversation by [facility]. Jagruti and Nba report that their preference is for the patient to go to [place]. They really do not want the patient to have to go to [facility], due to it being further away for the patient's and other son, Sam. They inquired that if the patient is to discharge tomorrow, if they can just take the patient home with home health and increased assistance from the family and then look at him transitioning to [facility] on Saturday from the home. They would like to hear from Dr. Morton today and have some time to talk about the options amongst themselves. They report that the patient is finally coming to and less confused today and are hopeful the patient would have some more time in the hospital before discharging. LASHELL attempted to contact Hermila at [facility] to ask about the patient coming to their facility from the home on Saturday, if he does discharge tomorrow. LASHELL left her a voicemail. LASHELL updated the patient's PA.
--- NOTE | 2022-01-04 18:57 | NUR ---
PATIENT AMBULATED WITH THERAPY OUT IN THE HALLWAY AND TO THE BATHROOM MULTIPLE TIMES TODAY. PATIENT HAS SHOWN A SIGNIFICANT IMPROVEMENT FROM YESTERDAY. PATIENT WAS ABLE TO FEED HIMSELF HIS MEALS. PATIENT HAS EXPRESSED BEING A LITTLE SORE ON HIS STOMACH WHEN HE COUGHS BUT DENIES NEEDING ANYTHING TO SUPPRESS THE PAIN. PATIENT MIDLINE DRESSING CHANGED. OSTOMY APPLIANCE CHANGED. AREA APPEARED REDDENED DUE TO FREQUENT CHANGES. APPLIED OSTOMY POWDER AND PASTE TO KEEP APPLIANCE FROM LEAKING. PATIENT'S FAMILY ADDRESSED CONCERNS REGARDING PLACEMENT DUE TO MORNING FALL. SPOKE WITH FAMILY ABOUT FORWARDING THEIR CONCERNS TO DR. RODRIGUEZ. FAMILY WANTS TO SPEAK DIRECTLY WITH MICHAEL REGARDING HIS DISCHARGE. FAMILY WANTS TO BE NOTIFIED WHEN MICHAEL ROUNDS IN THE AM ON SATURDAY MORNING. PATIENT'S SON, SASKIA, IS THE MEDICAL POA AND WOULD LIKE TO BE TELEPHONED UPON MICHAEL'S ARRIVAL.
--- NOTE | 2022-01-04 19:00 | NUR ---
Pts daughter in law brought to my attention that the pt was delivered someone else's tray. Pt was okay with the food that was ordered although the meat was the wrong consistency. Daughter in law, Jagruti, was adament that they tray was okay and I did not need to order another one. The meat was the only thing that was wrong consistency. Meat was cut/shredded up in to small pieces. Jagruti stated that she would stay with him while he ate to make sure he did okay. Still ordered another tray of the correct consistency just incase and let her know. Notified the kitchen so that the other pt would get a tray brought up.
--- NOTE | 2022-01-04 21:00 | NUR ---
PT IN BED, WATCHING TV. ATE MOST OF DINNER TRAY PROVIDED. IS ALERT AND ORIENTED X2. HAS RT ILEAL CONDUIT CONNECTED TO DRAIN BAG, HAS YELLOW URINE. MIDLINE INCISION WITH CHATA INTACT. LOWER ABD BRUISING NOTED. HAS RFA INT AND RT PORT ACCESSED, IVF PER PORT.
--- NOTE | 2022-01-04 22:18 | NUR ---
PT WANTING TO GO TO HIS BED, ORIENTED TO PLACE AND TIME. MEDICATED WITH SEROQUEL 25MG PO NOW. DENIES PAIN.
[2022-01-05 00:10] VITALS: BP 132/66; PULSE 78; TEMP 97.9
[2022-01-05 03:58] VITALS: BP 124/83; PULSE 82; TEMP 97.9
--- NOTE | 2022-01-05 05:00 | NUR ---
LABS OBTAINED FROM RT PORT. PT RESTING WELL AFTER SEROQUEL GIVEN LAST PM.
[2022-01-05 06:04] LABS: MEAN CELL VOLUME 93 fl (80.0-100.0); MEAN CORPUSCULAR HGB CONC 32 g/dl (33.0-37.0); MEAN PLATELET VOLUME 11.1 fl (7.4-10.4); PLATELET COUNT 140 K/mm3 (130-400); RED BLOOD COUNT 2.64 M/mm3 (4.20-5.60); REDCELL DISTRIBUTION WIDTH-CV 16.1 % (11.5-14.5)
[2022-01-05 06:22] LABS: HEMATOCRIT 24.6 % (42.0-52.0); HEMOGLOBIN 7.8 g/dl (13.5-18.0); MEAN CORPUSCULAR HEMOGLOBIN 30 pg (27-31)
[2022-01-05 06:27] LABS: CALCIUM 8.9 mg/dL (8.4-10.2); CREATININE, serum 1.16 mg/dL (0.72-1.25); POTASSIUM 3.8 mmol/L (3.5-4.5)
[2022-01-05 07:32] VITALS: BP 113/82; PULSE 85; TEMP 97.6
[2022-01-05 07:55] LABS: BAND 1 % (0-10); BASOPHIL 1 % (0-2); EOSINOPHIL 2 % (0-4); LYMPHOCYTE 19 % (20.0-51.0); NEUTROPHILS 68 % (42.0-75.2); PLATELET ESTIMATE NORMAL (NORMAL)
[2022-01-05 07:56] LABS: ANISOCYTOSIS 1+; HYPOCHROMIA 2+
--- NOTE | 2022-01-05 08:19 | NUR ---
Pt resting in bed upon entering room. Sat pt up and turned on more lights. Pt did talk with his on the phone. She stated that she would not be coming due to having a cold. Gave pt a sponge bath, washed hair and assisted him with shaving. Breakfast has been ordered. Pt reports that he does not need any pain medication. No other needs at this time, call light within reach, will continue to monitor
[2022-01-05] MEDS ORDERED: TYLENOL 325MG325 MG PO (09:06)
[2022-01-05] MEDS ORDERED: MELATIN 3 MG-11 TAB PO (09:08)
[2022-01-05] MEDS ORDERED: OMNICEF 300MG300 MG PO (09:09)
[2022-01-05] MEDS ORDERED: REMERON SOLTAB30 MG PO (09:20)
--- NOTE | 2022-01-05 10:07 | NUR ---
Have been on the phone with multiple times today. Pts son, Sam, is in room with pt. has been in to see pt and pt and Sam are on board for pt to be going to [place]. Pts reported to Kallie and called me with concerns about him leaving because he had only been out of bed once. I informed her and Kallie that the pt has been up multiple times and has actually walked in the halls with walker and standby assist. Pts was then concerned with his abd "leaking". I informed her that the urostomy is producing urine which is what it is supposed to do. Pts incision is well approximated with sirisha intact and no drainage noted. Urostomy bag in place and draining appropriately. Dr Lainez has been in and talked with pt and pts son Sam and discussed pt transferring to [place] which they both agreed they were ready for. Sam is willing to transfer pt to [place] when he is ready for discharge. Awaiting Dr Morton at this time
--- NOTE | 2022-01-05 11:21 | NUR ---
Dr Morton has been in to see patient and discussed pt and discharge to [place] with pt as well as son Sam. Dr Morton also called pts son Nba regarding the discharge as well. Pt will stay to eat lunch, receive antibiotic and then Sam is agreeable to take pt to [place] upon discharge
--- NOTE | 2022-01-05 11:24 | NUR ---
Hermila, at [facility], contacted LASHELL this morning and reports that they are able to accept the patient today. LASHELL notified the clinical team. Prior to rounding on the patient, the patient's son (Sam) notified staff and this SW that [facility] contacted them and they cannot take today. LASHELL then followed up with Hermila at the facility. Hermila reports that the patient's family reached out to them and informed them that they are not ready for the patient to discharge from the hospital yet. LASHELL informed Hermila how the clinical team is ready to discharge him today. Hermila states that she would need to speak to the family again. LASHELL updated the clinical team and the patient's RN. LASHELL then attended clinical rounds. The patient's son, Sam, at bedside. The hospitalist informed the patient and his son how the patient is ready to discharge. The patient's mental status is much approved and he is alert and oriented. The hospitalist addressed going to [place] for rehab and the patient is agreeable to this. Sam is also agreeable to the plan. LASHELL then followed up with Sam. Sam states that he needs to update his brother, Nba, and the patient's . Sam contacted Nba with LASHELL in the room. Sam informed LASHELL that Nba is upset that the patient is discharging today, but he is in agreement with the clinical team. LASHELL presented and read the IM form outloud to the patient and Sam. Sam verbalized understanding and signed the form. SW provided him with a copy. The patient's RN contacted [facility] and updated their RN and staff on the patient's condition and urostomy. [facility] is all good to take the patient today and asked if family could transport the patient. The patient's RN and SW presented this option to Sam. Sam is agreeable with transporting the patient today. [facility] is asking that we provide them with enough ostomy supplies to get them through the weekend. LASHELL updated the patient's RN. The PA also confirmed with the urologist, Dr. Morton, that he is good with the patient discharging today. Dr. Morton plans to come and meet with the patient and his son, before discharge today. SW updated the patient and Sam on this. Dr. Morton then arrived to the hospital. He met with the patient and his son, Sam. He then contacted the patient's other son, Nba's, and addressed Nba's concerns. Dr. Morton is also ready to discharge the patient today and informed the patient and both sons how he will visit the patient in the snf. The patient is to discharge today, 01/05, to [facility] for a skilled stay. Transportation to be by private vehicle, via the patient's son. No additional needs at this time.
--- NOTE | 2022-01-05 11:40 | NUR ---
Pt up walking in the halls with PT. Lunch has been ordered
[2022-01-05 12:00] VITALS: BP 117/68; PULSE 92; TEMP 97.4
[2022-01-05 13:45] VITALS: BP 117/68; PULSE 92; TEMP 97.4
--- NOTE | 2022-01-05 13:45 | NUR ---
Pt was assisted to the restroom, he did have a bowel movement. PT was able to wipe himself with no problems. Pt escorted back to the recliner. INT removed from right hand and portacath deaccessed after flushing with heparin. Incision remains well approximated with sirisha and ostomy wafer/pouch attached with no drainage. PRN Tylenol given for the ride per pt request. Pt assisted with getting dressed
--- NOTE | 2022-01-05 14:30 | NUR ---
Report called to Karen at [facility]
== END 2022-01-05 14:10 | DRG 654 ==
LOC: SDCO 12-14 07:30 → EDSTATUS 12-14 07:30 → SURG 12-14 07:30 → INPTSU 12-28 05:38 → SURG 12-28 05:38 → SDCO 12-28 07:30 → EDSTATUS 12-28 07:30 → ICU 12-28 13:53 → SDCO 12-29 07:30 → SURG 12-31 10:48
PROVIDERS: Internal Medicine; Physician Assistant; ADMIT Urology
PROC: 0VT00ZZ Resection of Prostate, Open Approach (ICD-10-PCS; 2021-12-28)
PROC: 0T180ZC Bypass Bilateral Ureters to Ileocutaneous, Open Approach (ICD-10-PCS; 2021-12-28)
PROC: 0TTB0ZZ Resection of Bladder, Open Approach (ICD-10-PCS; principal; 2021-12-28 07:30)
DX: C67.9 Malignant neoplasm of bladder, unspecified (principal); E87.2 Acidosis; N17.9 Acute kidney failure, unspecified; F03.91 Unspecified dementia, unspecified severity, with behavioral disturbance; F05 Delirium due to known physiological condition; N39.0 Urinary tract infection, site not specified; I10 Essential (primary) hypertension; F32.A Depression, unspecified; N40.0 Benign prostatic hyperplasia without lower urinary tract symptoms; M10.9 Gout, unspecified; G47.33 Obstructive sleep apnea (adult) (pediatric); B96.20 Unspecified Escherichia coli [E. coli] as the cause of diseases classified elsewhere; B96.1 Klebsiella pneumoniae [K. pneumoniae] as the cause of diseases classified elsewhere; D72.829 Elevated white blood cell count, unspecified; R00.0 Tachycardia, unspecified; D64.9 Anemia, unspecified; D69.6 Thrombocytopenia, unspecified; E83.39 Other disorders of phosphorus metabolism; E87.6 Hypokalemia; T41.45XA Adverse effect of unspecified anesthetic, initial encounter; T40.605A Adverse effect of unspecified narcotics, initial encounter; Z96.653 Presence of artificial knee joint, bilateral; Z20.822 Contact with and (suspected) exposure to COVID-19; Z23 Encounter for immunization
CPT/HCPCS: 99222; 99232-AI; 99233-AI; 99239; A9284; C2617; J0690; J0696; J1100; J1170; J1630; J1650; J1756; J2060; J2250; J2370; J2405; J2704; J2765; J3010; J3475; J3480; J7050; J7120; P9016

== ENCOUNTER 2022-01-10 09:08 | Observation (INO) | payer MEDICARE, BC ==
[~2022-01-10] VITALS: Wt 92.0 kg
[2022-01-10] VITALS (10 sets, daily range): BP systolic 110–144; BP diastolic 55–76; PULSE 70–85; TEMP 97.8–98.3
[~2022-01-10 09:08] MED LIST changes: +MELATIN 3 MG-11 TAB PO; +OMNICEF 300MG300 MG PO; +REMERON SOLTAB30 MG PO; +TYLENOL 325MG325 MG PO
[2022-01-10 10:35] LABS: BASO # 0.1 K/mm3 (0.0-0.2); BASO % 0.9 % (0.0-2.0); EOS # 0.3 K/mm3 (0.0-0.7); EOS % 4.6 % (0.0-4.0); GRAN # 4.1 K/mm3 (1.4-6.5); LYMPH # 0.9 K/mm3 (1.2-3.4); LYMPH % 15.3 % (20.0-51.0); MEAN CELL VOLUME 95 fl (80.0-100.0); MEAN CORPUSCULAR HGB CONC 32 g/dl (33.0-37.0); MEAN PLATELET VOLUME 10.7 fl (7.4-10.4); MONO # 0.5 K/mm3 (0.1-0.6); MONO % 8.2 % (1.7-9.3); PLATELET COUNT 241 K/mm3 (130-400); RED BLOOD COUNT 3.02 M/mm3 (4.20-5.60); REDCELL DISTRIBUTION WIDTH-CV 16.6 % (11.5-14.5)
[2022-01-10 10:38] LABS: HEMATOCRIT 28.8 % (42.0-52.0); HEMOGLOBIN 9.1 g/dl (13.5-18.0); MEAN CORPUSCULAR HEMOGLOBIN 30 pg (27-31)
[2022-01-10 10:46] LABS: ALBUMIN 2.9 gm/dL (3.4-4.8); BILIRUBIN,TOTAL 0.4 mg/dL (0.2-1.2); CALCIUM 9.3 mg/dL (8.4-10.2); CREATININE, serum 1.37 mg/dL (0.72-1.25); POTASSIUM 4.4 mmol/L (3.5-4.5); TOTAL PROTEIN 5.9 gm/dL (6.2-8.1)
--- NOTE | 2022-01-10 15:23 | NUR ---
PT ARRIVED TO ROOM 328 VIA BED. VSS. DROWSY BUT WAKES WITHOUT DIFFICULTY. POST OP FLUIDS INFUSING. ILIEOSTOMY CONNECTED TO PENA BAG WITH CLEAR, YELLOW OUTPUT. VIDAL DRAIN PRESENT WITH NO DRAINAGE. DRESSING TO MIDLINE IS C,D,I. PT DENIES NEEDS AT THIS TIME
--- NOTE | 2022-01-11 02:31 | NUR ---
PATIENT DOING WELL TONIGHT. ALERT AND PARTIALLY ORIENTED. SOME CONFUSION NOTED BUT THIS IS BASELINE. MIDLINE CDI WITH ABD AND TAPE. VIDAL DRAIN WITH SMALL AMOUNT OF BLOODY DRAINAGE NOTED. UROSTOMY CDI TO PENA BAG WITH CLEAR YELLOW URINE NOTED. TOOK SCHEDULED PILLS WITH SIPS OF WATER. R CHEMO PORT CDI WITH BANDAID. SON, TERRANCE, IS AT BEDSIDE. C/O MODERATE PAIN AND PRN TYLENOL GIVEN X2 DOSES.
[2022-01-11 03:57] VITALS: BP 116/56; PULSE 63; TEMP 98.1
[2022-01-11 07:52] VITALS: BP 126/68; PULSE 58; TEMP 98.1
--- NOTE | 2022-01-11 09:31 | NUR ---
PT RESTING IN BED. PHYYSICIANS ROUNDED SEE COMPUTER FOR NEW ORDERS. EDUCATED PT AND SON ON ORDERING FOOD FROM ROOM SERVICE. DIET ADVANCED TO GENERAL. PT TOLERATING PO INTAKE AT THIS TIME.
--- NOTE | 2022-01-11 09:32 | NUR ---
Initial visit; Patient and his son thanked Video Surveillance Technician for visit and offering God's blessings and encouraging them to contact [facility] and Complaint Operator.
--- NOTE | 2022-01-11 10:42 | NUR ---
The patient's RN notified LASHELL that the patient's attending will be ready to discharge the patient tomorrow, 01/12. LASHELL met with the patient and his son, Sam (ph#[phone]), to discuss discharge plan. The patient discharged to [facility] for a skilled stay on Saturday, 01/05. The patient had a tear in his incision and was admitted back to the hospital to have it repaired. The patient's primary care provider is Satinder Bowman PA-C and his DPOA-HC is in EMR. It designates his son, Nba (ph#[phone]). The alternate is his other son, Sam. Sam reports that the plan is for the patient to return back to [facility] upon discharge tomorrow. He is in agreement to the discharge tomorrow. LASHELL notified and faxed updates to Rossy at [facility]. LASHELL to continue to follow. *Discharge plan: [facility] SNF*
[2022-01-11 12:06] VITALS: BP 118/85; PULSE 97; TEMP 97.6
[2022-01-11 16:01] VITALS: BP 115/55; PULSE 78; TEMP 97.9
[2022-01-11 20:00] VITALS: BP 115/56; PULSE 69; TEMP 97.6
--- NOTE | 2022-01-11 20:30 | NUR ---
PATIENT AMBULATED WITH WHEELED WALKER FROM HIS ROOM TO TEMP ISOLATION DOORS NEAR MEDICAL AND BACK TO ROOM (APPROX [phone] FEET)
[2022-01-12 00:33] VITALS: BP 114/51; PULSE 96; TEMP 98.2
[2022-01-12 04:11] VITALS: BP 118/71; PULSE 96; TEMP 98.1
--- NOTE | 2022-01-12 06:45 | NUR ---
appears to be dozing, bedside shift report received from JENNIFER Carias
[2022-01-12 07:45] VITALS: BP 124/59; PULSE 77; TEMP 97.7
--- NOTE | 2022-01-12 08:20 | NUR ---
son at bedside, assisted patient out of bed and up to recliner for breakfast, VIDAL drain to compression, abdominal dressing CD&I, ileostomy draining yellow urine with some sediment, ostomy site CD&I and no leaking from site, ready for breakfst and son will assist
--- NOTE | 2022-01-12 11:12 | NUR ---
Dr Moseley was in to see patient and removed drain and gauze dressing in place
--- NOTE | 2022-01-12 11:20 | NUR ---
remainder of assessment completed, see intervention for further info
--- NOTE | 2022-01-12 12:25 | NUR ---
resting in bed, son remains at bedside, will plan discharge later
[2022-01-12 12:52] VITALS: BP 124/59; PULSE 77; TEMP 97.7
--- NOTE | 2022-01-12 13:12 | NUR ---
report called to Amna at [facility]
--- NOTE | 2022-01-12 13:23 | NUR ---
discharged per WC
--- NOTE | 2022-01-12 13:26 | NUR ---
The patient is to discharge today, 01/12, back to [facility] for a skilled stay. Transportation by private vehicle, via the patient's son. SW notified [facility]. No additional needs at this time.
[2022-01-12 14:23] VITALS: BP 119/59; PULSE 79
== END 2022-01-12 13:23 ==
LOC: COL.ER 09:08 → SURG 12:02
PROVIDERS: Family Medicine; ADMIT Urology
DX: T81.32XA Disruption of internal operation (surgical) wound, not elsewhere classified, initial encounter (principal); C67.9 Malignant neoplasm of bladder, unspecified; I10 Essential (primary) hypertension; G47.33 Obstructive sleep apnea (adult) (pediatric); Z93.6 Other artificial openings of urinary tract status; Z96.0 Presence of urogenital implants; Z92.3 Personal history of irradiation; Z90.6 Acquired absence of other parts of urinary tract
CPT/HCPCS: G0378; J0330; J0690; J1100; J2405; J2704; J2710; J2795; J3010; J7120